=== PATIENT | female | born 1990 | race Hispanic/Latino ===

== ENCOUNTER 2022-07-11 02:32 | Observation (INO) | payer MEDICAID ==
[~2022-07-11] VITALS: Ht 167.6 cm; Wt 65.8 kg
[2022-07-11 03:04] LABS: EOSINOPHILS % (AUTO) 4.2 % (0.0-8.0); HEMATOCRIT 35.8 % (36-48); LYMPHOCYTES % (AUTO) 15.6 % (21.0-51.0); MEAN CORPUSCULAR HEMOGLOBIN 31.6 pg (27.0-33.0); MEAN CORPUSCULAR HGB CONC 33.8 g/dL (32.0-36.0); MEAN CORPUSCULAR VOLUME 93.5 fL (79-99); MONOCYTES % (AUTO) 16.7 % (3.0-13.0); NEUTROPHILS % (AUTO) 61.9 % (40.0-77.0); PLATELET COUNT (AUTO) 304 K/uL (130-400); RED BLOOD CELL COUNT(AUTO) 3.83 MIL/uL (4.00-5.50); RED CELL DISTRIBUTION WIDTH 13.5 % (11.0-15.5)
[2022-07-11 03:06] LABS: APPEARANCE,URINE CLEAR (CLEAR); BILIRUBIN,URINE NEGATIVE (NEGATIVE); COLOR,URINE COLORLESS (YELLOW); GLUCOSE, URINE (UA) NEGATIVE (NEGATIVE); KETONES,URINE NEGATIVE (NEGATIVE); LEUKOCYTE ESTERASE ,URINE NEGATIVE Leu/uL (NEGATIVE); NITRATE,URINE NEGATIVE (NEGATIVE); OCCULT BLOOD,URINE NEGATIVE (NEGATIVE); PH,URINE 7.5 (5.0-8.0); PROTEIN,URINE NEGATIVE (NEGATIVE); UROBILINOGEN,URINE 0.2 mg/dL (0.2-1.0)
[2022-07-11 03:13] LABS: CREATININE 0.6 mg/dL (0.5-1.5); POTASSIUM 4.5 mmol/L (3.5-5.1)
[2022-07-11 03:18] LABS: ALBUMIN 3.5 g/dL (3.5-5.0); TOTAL PROTEIN, SERUM 7.1 g/dL (6.0-8.3)
[2022-07-11] MEDS ORDERED: IOHEXOL 350 MG/ML 100ML INFUS..BTL IV ONE (03:52)
[2022-07-11] MEDS ORDERED: MORPHINE 2 MG SYG ONE (04:13)
[2022-07-11] MEDS ORDERED: 0.9%NACL 1000ML 2,000 ML IV ONE (06:30)
[2022-07-11] MEDS ORDERED: MORPHINE 4 MG SYG IM ONE (06:30)
[2022-07-11] MEDS ORDERED: ONDANSETRON 4MG TABLET PO PRN (07:30)
[2022-07-11] MEDS ORDERED: ACETAMINOPHEN 650 MG SUPPOSITORY RC PRN (07:30)
[2022-07-11] MEDS: FAMOTIDINE 20MG VIAL IV SCH ×2 (08:19→21:04)
[2022-07-11] MEDS: 0.9%NACL 1000ML 1,000 ML IV SCH ×2 (08:19→17:11)
[2022-07-11] MEDS: MORPHINE 2 MG SYG IVP PRN ×4 (09:30→21:05)
[2022-07-11 12:25] VITALS: BP 144/87
[2022-07-11] MEDS ORDERED: BISACODYL 10 MG SUPP.RECT RC PRN (13:00)
[2022-07-11 16:30] VITALS: BP 143/92
[2022-07-11 20:43] VITALS: BP 140/92
[2022-07-12 00:15] VITALS: BP 138/95
[2022-07-12] MEDS: MORPHINE 2 MG SYG IVP PRN ×3 (00:45→09:24)
[2022-07-12 03:00] VITALS: BP 138/87
[2022-07-12 04:41] LABS: HEMATOCRIT 36.9 % (36-48); MEAN CORPUSCULAR HEMOGLOBIN 31.4 pg (27.0-33.0); MEAN CORPUSCULAR HGB CONC 33.1 g/dL (32.0-36.0); MEAN CORPUSCULAR VOLUME 94.9 fL (79-99); RED BLOOD CELL COUNT(AUTO) 3.89 MIL/uL (4.00-5.50); RED CELL DISTRIBUTION WIDTH 13.5 % (11.0-15.5); WHITE BLOOD COUNT (AUTO) 7.3 K/uL (4.8-10.8)
[2022-07-12 05:01] LABS: CREATININE 0.5 mg/dL (0.5-1.5); POTASSIUM 3.9 mmol/L (3.5-5.1); TOTAL PROTEIN, SERUM 6.6 g/dL (6.0-8.3)
[2022-07-12] MEDS: 0.9%NACL 1000ML 1,000 ML IV SCH (05:02)
[2022-07-12 07:30] VITALS: BP 134/88
[2022-07-12] MEDS: FAMOTIDINE 20MG VIAL IV SCH (09:24)
[2022-07-12 11:30] VITALS: BP 137/82
[2022-07-12] MEDS ORDERED: DICY10 PO (12:00)
[2022-07-12] MEDS ORDERED: POLY17PO4 PO (12:02)
== END 2022-07-12 15:00 | disposition home or self-care (01) ==
LOC: EDH 02:32 → INTOOBSV 02:33 → EDHIP 02:33 → 4CH 12:25
PROVIDERS: ADMIT Hospitalist; ATTEND Hospitalist
DX: K85.90 Acute pancreatitis without necrosis or infection, unspecified (principal); R10.12 Left upper quadrant pain; I10 Essential (primary) hypertension; E86.1 Hypovolemia; K59.00 Constipation, unspecified; Z98.891 History of uterine scar from previous surgery; Z79.899 Other long term (current) drug therapy; Z98.890 Other specified postprocedural states
CPT/HCPCS: 96374; 96376 ×2; 96372; 96361 ×4; 96375; 99285; 84484; 80053 ×2; 83690 ×2; 85025; 81003; 81025; 36415 ×2; 74177; 82150; 85027; S0028 ×3; J7030; J2270; Q9967; G0378 ×4; J3490

== ENCOUNTER 2023-01-16 19:54 | Emergency (ER) | payer MEDICAID ==
[~2023-01-16] VITALS: Ht 167.6 cm; Wt 59.4 kg
[~2023-01-16 19:54] MED LIST: DICY10 PO; POLY17PO4 PO
[2023-01-16 22:56] LABS: BASOPHILS % (AUTO) 0.7 % (0.0-5.0); EOSINOPHILS % (AUTO) 1.5 % (0.0-8.0); HEMATOCRIT 39.6 % (36-48); MEAN CORPUSCULAR HEMOGLOBIN 31.3 pg (27.0-33.0); MEAN CORPUSCULAR HGB CONC 32.6 g/dL (32.0-36.0); MEAN CORPUSCULAR VOLUME 96.1 fL (79-99); MONOCYTES % (AUTO) 5.8 % (3.0-13.0); NEUTROPHILS % (AUTO) 67.8 % (40.0-77.0); PLATELET COUNT (AUTO) 218 K/uL (130-400); RED BLOOD CELL COUNT(AUTO) 4.12 MIL/uL (4.00-5.50); RED CELL DISTRIBUTION WIDTH 11.8 % (11.0-15.5); WHITE BLOOD COUNT (AUTO) 8.7 K/uL (4.8-10.8)
[2023-01-16 23:09] LABS: CARBON DIOXIDE 29 mmol/L (21-32); CHLORIDE 98 mmol/L (101-111); CREATININE 0.6 mg/dL (0.5-1.5); GLOMERULAR FILTR. RATE CALC 123 mL/min (>90); GLUCOSE,RANDOM 122 mg/dL (70-105); POTASSIUM 3.1 mmol/L (3.5-5.1); SODIUM SERUM 132 mmol/L (136-145); UREA NITROGEN, BLOOD 7 mg/dL (7-18)
[2023-01-16 23:13] LABS: ALANINE AMINOTRANSFERASE 56 U/L (12-78); ASPARTATE AMINOTRANSFERASE 38 U/L (10-37); TOTAL PROTEIN, SERUM 7.4 g/dL (6.0-8.3)
[2023-01-16 23:20] LABS: LIPASE < 50 U/L (114-286)
[2023-01-16] MEDS ORDERED: 0.9%NACL 1000ML 2,000 ML IV ONE (23:30)
[2023-01-17] MEDS ORDERED: DICYCLOMINE 20MG (10MG/ML) AMP IM STA (01:02)
[2023-01-17] MEDS ORDERED: LISI10TA24 PO (01:14)
[2023-01-17] MEDS ORDERED: OMEP20TA2 PO (01:14)
[2023-01-17] MEDS ORDERED: DICY10 PO (01:16)
[2023-01-17] MEDS ORDERED: POTASSIUM CHLORIDE 20MEQ/10ML 10 MEQ in 0.9%NACL 50ML 50 ML IV SCH (01:30)
[2023-01-17] MEDS ORDERED: LIDOCAINE HCL 2% VISCOUS 15 ML UDCUP PO ONE (01:30)
[2023-01-17] MEDS ORDERED: MAG/ALUM/SIMETH 30 ML UDCUP PO ONE (01:30)
[2023-01-17] MEDS ORDERED: POTASSIUM CHLORIDE 10MEQ/100ML 100 ML IV ONE (01:38)
[2023-01-17 03:17] VITALS: BP 143/94
[2023-01-17] MEDS ORDERED: ONDA4TAB10 PO (03:37)
== END 2023-01-17 03:40 | disposition home or self-care (01) ==
LOC: EDH 19:54
DX: R10.12 Left upper quadrant pain (principal); I10 Essential (primary) hypertension
CPT/HCPCS: 99285; 96361; 80053; 84703; 83690; 85025; 36415; 96365; 76705; 96366; 96372; J7030; J0500; J3480